=== PATIENT | male | born 1990 | race African-American/Black ===

== ENCOUNTER 2021-04-09 12:43 | Emergency (ER) | payer OTHER ==
[~2021-04-09] VITALS: Ht 182.9 cm; Wt 90.1 kg
[2021-04-09] MEDS ORDERED: ACETAMINOPHEN 325 MG TAB PO ONE (13:15)
[2021-04-09] MEDS ORDERED: NS 1,000 ML IV ONE (13:15)
[2021-04-09 13:42] LABS: BASO % 0.7 % (0.0-1.0); EOS # 0.1 10^3/uL (0.0-0.5); EOS % 2.7 % (0.0-3.0); HEMATOCRIT 51.5 % (42.0-52.0); HEMOGLOBIN 16.7 g/dl (13.5-17.5); LYMPH # 2.5 10^3/uL (1.5-5.0); MEAN CORPUSCULAR HEMOGLOBIN 28.5 pg (27.0-33.0); MEAN CORPUSCULAR HGB CONC 32.4 g/dl (32.0-36.5); MEAN CORPUSCULAR VOLUME 87.9 fl (80.0-96.0); MONO # 0.4 10^3/uL (0.0-0.8); MONO % 8.8 % (2.0-8.0); NEUTROPHILS # 1.4 10^3/uL (1.5-8.5); NEUTROPHILS % 31.6 % (36.0-66.0); PLATELET COUNT, AUTOMATED 230 10^3/uL (150-450); RED BLOOD COUNT 5.86 10^6/uL (4.30-6.10); WHITE BLOOD COUNT 4.4 10^3/uL (4.0-10.0)
[2021-04-09 14:09] LABS: ALBUMIN 4.2 GM/DL (3.2-5.2); ALT/SGPT 132 U/L (12-78); BILIRUBIN,DIRECT 0.2 MG/DL (0.0-0.2); BILIRUBIN,TOTAL 0.9 MG/DL (0.2-1.0); BLOOD UREA NITROGEN 7 MG/DL (7-18); CALCIUM LEVEL 8.8 MG/DL (8.5-10.1); CARBON DIOXIDE LEVEL 30 MEQ/L (21-32); CHLORIDE LEVEL 108 MEQ/L (98-107); CK-MB VALUE MASS 1.4 NG/ML (<3.6); CPK CREATINE PHOSPHOKINASE 647 U/L (39-308); CREATININE FOR GFR 1.04 MG/DL (0.70-1.30); GLOMERULAR FILTRATION RATE > 60.0 (>60); GLUCOSE, FASTING 93 MG/DL (70-100); MB/CK RELATIVE INDEX 0.22 (< OR =4); POTASSIUM SERUM 4.2 MEQ/L (3.5-5.1); SODIUM LEVEL 140 MEQ/L (136-145); TOTAL PROTEIN 8.3 GM/DL (6.4-8.2)
[2021-04-09 15:28] VITALS: BP 162/97
[2021-04-12 16:11] LABS: Lyme Disease IgG/IgM Antibodie <0.91 ISR (0.00-0.90); Lyme Disease IgM Ab Quantitati <0.80 index (0.00-0.79)
== END 2021-04-09 16:01 | disposition home or self-care (01) ==
LOC: M ED 12:43
DX: E86.0 Dehydration (principal); R74.8 Abnormal levels of other serum enzymes; M79.10 Myalgia, unspecified site; R10.9 Unspecified abdominal pain